=== PATIENT | female | born 1960 | race Caucasian/White ===

== ENCOUNTER → 2017-12-13 | Day surgery (SDC) | payer BC ==
[~2017-12-13] MED LIST: Lactated Ringers 1,000 ML IV SCH; Midazolam 1 MG/ML 2 ML SDV IV ONE; Midazolam 1 MG/ML 2 ML SDV ONE; fentaNYL 100 MCG/2 ML SDV IV ONE; fentaNYL 100 MCG/2 ML SDV ONE
--- NOTE | 2017-12-13 13:20 | OR ---
DATE: 12/13/2017 PREOPERATIVE DIAGNOSES: Screening colonoscopy and rectal bleeding. POSTOPERATIVE DIAGNOSES: Screening colonoscopy and rectal bleeding. PROCEDURE: Total colonoscopy. ANESTHESIA: Conscious sedation with IV Versed and fentanyl. SPECIMEN: None. OPERATIVE FINDINGS: Normal colonoscopy. She has an occasional cecal and right colon large mouth diverticula, but these are of no consequence. INDICATION FOR PROCEDURE: This 57-year-old female has not had a prior colonoscopy. She has evidence of blood within the stool. By physical examination, does have some external hemorrhoids. PROCEDURE IN DETAIL: After adequate preparation, a colonoscope was inserted into the rectum. This was easily passed all the way to the cecum. Confirmation of the cecum was made by visualization of the ileocecal valve and palpation in the right lower quadrant. I could also see a light shining through the right lower quadrant. The bowel prep was excellent. On withdrawal of the scope, she has 3 or 4 large mouth diverticula in the cecum and ascending colon. These are obviously not the bleeding sites. The rest of the colon examination is normal. She has no masses, evidence of colitis, other diverticula, or polyps. Rectal examination seems normal. I did not see any significant internal hemorrhoids. There was no visible cause for her bleeding, but if any of this continues, it is most likely internal hemorrhoid. Air was suctioned from the colon and the scope removed. [facility] /[id number]
== END ==
LOC: DL.ENDO 07:55
PROVIDERS: ATTEND Surgery
DX: K62.5 Hemorrhage of anus and rectum (principal); K57.30 Diverticulosis of large intestine without perforation or abscess without bleeding; K64.4 Residual hemorrhoidal skin tags; F17.200 Nicotine dependence, unspecified, uncomplicated
CPT/HCPCS: 45378; J2250; J3010; J7120

== ENCOUNTER 2020-09-28 08:11 | Emergency (ER) | payer BC, OTHER ==
--- NOTE | 2020-09-28 08:25 | EDM.PDOC ---
ED HPI GENERAL MEDICAL PROBLEM - General Chief Complaint: Head Injury Stated Complaint: FELL, LOSING MEMORY Time Seen by Provider: 09/28/20 08:21 Source of Information: Reports: Patient, Old Records, RN, RN Notes Reviewed History Limitations: Reports: No Limitations - History of Present Illness INITIAL COMMENTS - FREE TEXT/NARRATIVE: Pt presents to ER by POV with report that she slipped and fell in a parking lot at approximately 0800HRS this morning and struck her head on the pavement. Pt c/o feeling "foggy" with short term memory, and pain in the head, and at the base of the neck. Admits to nausea just after the fall. Denies LOC, vomiting, visual changes, radiating pain, numbness, tingling, or motor weakness. Denies any symptoms preceding the fall, such as chest pain, dizziness, etc. *At 0820HRS during triage it was determined that the pt. is on daily aspirin therapy, and was converted to a trauma chart by the refractory repairer. TRAUMA: ARRIVAL TIME: Trauma call initiated in ER at 0820HRS. C-COLLAR STATUS: applied by RN in ER GCS ON ARRIVAL: 15 LONG SPINAL BOARD STATUS: n/a Onset: Today, Sudden Onset Date: 09/28/20 Onset Time: 08:21 Duration: Constant Location: Reports: Head, Neck Quality: Reports: Ache Severity: Moderate Improves with: Reports: None Worsens with: Reports: Movement Context: Reports: Other (Ground level fall) Associated Symptoms: Reports: No Other Symptoms Shoulder Pain Score (Numeric/FACES): 4 - Related Data Allergies Allergy/AdvReac Type Severity Reaction Status Date / Time No Known Allergies Allergy Verified 07/05/18 03:46 Home Meds: Home Meds Aspirin [Adult Low Dose Aspirin EC] 81 mg PO DAILY 11/06/17 [History] Cholecalciferol (Vitamin D3) [Vitamin D] 5,000 unit PO DAILY 11/06/17 [History] Fish Oil/[place]-3 Fatty Acids [Fish Oil] 1 each PO DAILY 11/06/17 [History] Glucosamine [Glucosamine Sulfate] 500 mg PO DAILY 11/06/17 [History] Rosuvastatin [Crestor] 10 mg PO DAILY 11/06/17 [History] Ubidecarenone [COQ-10] 30 mg PO DAILY 11/06/17 [History] hydroCHLOROthiazide [Hydrochlorothiazide] 10 mg PO DAILY 11/06/17 [History] Olmesartan [Benicar] 20 mg PO BEDTIME 09/28/20 [History] Past Medical History HEENT History: Reports: Impaired Vision Other HEENT History: wears corrective lenses Cardiovascular History: Reports: Hypertension Respiratory History: Reports: None Gastrointestinal History: Reports: Other (See Below) Other Gastrointestinal History: inguinal hernia Genitourinary History: Reports: None BAT BOY/GIRL History: Reports: Musculoskeletal History: Reports: None Neurological History: Reports: None Psychiatric History: Reports: None Endocrine/Metabolic History: Reports: None Hematologic History: Reports: None Immunologic History: Reports: Immunosuppression Oncologic (Cancer) History: Reports: Basal Cell Carcinoma, Other (See Below) Other Oncologic History: basal cell Dermatologic History: Reports: Melanoma, Other (See Below) Other Dermatologic History: skin cancer removed x3 - Infectious Disease History Infectious Disease History: Reports: Mumps, Shingles - Past Surgical History HEENT Surgical History: Reports: None Cardiovascular Surgical History: Reports: None, Other (See Below) Other Cardiovascular Surgeries/Procedures: echocardiogram; BP meds adjusted GI Surgical History: Reports: Hernia, Inguinal Female Surgical History: Reports: Section Other Female Surgeries/Procedures: 2 c-sections Social & Family History - Family History Family Medical History: No Pertinent Family History - Caffeine Use Caffeine Use: Reports: Coffee, Soda Other Caffeine Use: 1 cup daily. 1 can soda - Living Situation & Occupation Living situation: Reports: , with Spouse ED ROS GENERAL - Review of Systems Review Of Systems: Comprehensive ROS is negative, except as noted in HPI. ED EXAM, HEAD INJURY - Physical Exam Exam: See Below Text/Narrative:: PRIMARY TRAUMA SURVEY (821): AIRWAY: Patent nasal and oral airways, conversant with normal speech, no evidence of airway obstruction. BREATHING: Spontaneous respirations, symmetric chest rise and fall, non-labored breathing. CIRCULATION: No central, peripheral, or perioral cyanosis. Heart regular rate and rhythm, non-muffled, no murmur. Intact distal pulses and capillary refill x all 4 distal extremities. DEFORMITY/DISABILITY: Head normal cephalic, tender "goose egg" at left posterior scalp; Neck no c-collar on arrival, placed by RN prior to exam, not removed for exam. Chest non-tender. Abdomen soft, non-tender, benign to exam. Pelvis stable. Upper extremities non-tender, atraumatic. Lower extremities non- tender, atraumatic. No active bleeding, no long bone deformities. No acute motor or sensory deficits. CN II-XII intact. GCS 15 on arrival. EXPOSURE: Skin warm and dry. SECONDARY TRAUMA SURVEY ([id number]): Exam Limited By: No Limitations General Appearance: Alert, WD/WN, No Apparent Distress Head: Normocephalic, Scalp Hematoma (Left posterior scalp), Scalp Tenderness. No: Active Bleeding, Harrison's Sign Nexus Criteria: Altered Level of Consciousness (Mild confusion to the events around the time of the fall). No: Posterior, Midline Cervical Tenderness, Evidence of Intoxication, Focal Neurological Deficit, Painful Distraction Injuries Eyes: Bilateral Eye: EOMI, Normal Inspection, PERRL Ears: Normal External Exam, Normal Canal, Hearing Grossly Normal, Normal TMs Nose: Normal Inspection, Normal Mucousa, No Blood Throat/Mouth: Normal Inspection, Normal Lips, Normal Teeth, Normal Gums, Normal Oropharynx, Normal Voice, No Airway Compromise Neck: Other (C-spine cleared by CT. C-collar removed at 0909HRS by me.) Respiratory: No Respiratory Distress, Lungs Clear, Normal Breath Sounds, No Accessory Muscle Use, Chest Non-Tender Cardiovascular: Normal Peripheral Pulses, Regular Rate, Rhythm, No Edema, No Gallop, No JVD, No Murmur, No Rub, Extra Beats GI/Abdominal Exam: Normal Bowel Sounds, Soft, Non-Tender, No Organomegaly, No Distention, No Abnormal Bruit, No Mass Back Exam: Full Range of Motion, Normal Inspection, NT Extremities: Normal Inspection, Normal Range of Motion, Non-Tender, No Pedal Edema, Normal Capillary Refill Neurologic: metal numerical control programmer II-XII nml As Tested, No Motor/Sensory Deficits, Alert, Normal Mood/Affect, Oriented x 3, Other (GCS at 1HR: 15. GCS at discharge: 15) Skin: Normal Color, Warm/Dry - [place] Coma Score Best Eye Response ([place]): (4) Open Spontaneously Best Verbal Response (Carlos A): (5) Oriented Best Motor Response ([place]): (6) Obeys Commands [place] Total: 15 #1 Interpretation EKG Date: 09/28/20 Time: 08:52 Rhythm: Other (SR with ventricular trigeminy) Rate (Beats/Min): 89 [place]: Normal P-Wave: Present QRS: Other (Anterior Q waves) ST-T: Normal QT: Normal Comparison: NA - No Prior EKG Course - Vital Signs Last Recorded V/S: Last Vital Signs Temp 96.4 F L 09/28/20 08:17 Pulse 69 09/28/20 08:17 Resp 16 09/28/20 08:17 BP 142/78 H 09/28/20 08:17 Pulse Ox 99 09/28/20 08:17 - Orders/Labs/Meds Orders: Active Orders 24 hr Category Date Time Status EKG 12 Lead [EKG Documentation Completion] [RC] STAT Care 09/28/20 08:36 Active COMPREHENSIVE METABOLIC PN,CMP [CHEM] Stat Lab 09/28/20 08:58 Received ETHANOL BLOOD MEDICAL [CHEM] Stat Lab 09/28/20 08:58 Received INR,PT,PROTHROMBIN TIME [COAG] Stat Lab 09/28/20 08:58 Received PTT,PARTIAL THROMBOPLSTIN TIME [COAG] Stat Lab 09/28/20 08:58 Received TROPONIN I [CHEM] Stat Lab 09/28/20 08:58 Received UA RFX JEM AND CULT IF INDIC [URIN] Stat Lab 09/28/20 09:04 Received Labs: Laboratory Tests 09/28/20 09/28/20 Range/Units 08:58 09:04 WBC 6.0 (5.0-10.0) 10^3/uL RBC 4.86 (4.2-5.4) 10^6/uL Hgb 14.8 (12.0-16.0) g/dL Hct 41.6 (37.0-47.0) % MCV 85.6 (80-100) fL MCH 30.5 (27.0-34.0) pg MCHC 35.6 H (33.0-35.0) g/dL Plt Count 190 (150-450) 10^3/uL Neut % (Auto) 73.4 (42.2-75.2) % Lymph % (Auto) 17.7 L (20.5-50.1) % [place] % (Auto) 7.5 (2-8) % Eos % (Auto) 0.7 L (1.0-3.0) % Baso % (Auto) 0.7 (0.0-1.0) % Urine Opiates Screen Negative (NEGATIVE) Ur Oxycodone Screen Negative (NEGATIVE) Urine Methadone Screen Negative (NEGATIVE) Ur Barbiturates Screen Negative (NEGATIVE) U Tricyclic Antidepress Negative (NEGATIVE) Ur Phencyclidine Scrn Negative (NEGATIVE) Ur Amphetamine Screen Negative (NEGATIVE) U Methamphetamines Scrn Negative (NEGATIVE) Urine MDMA Screen Negative (NEGATIVE) U Benzodiazepines Scrn Negative (NEGATIVE) Urine Cocaine Screen Negative (NEGATIVE) U Marijuana (THC) Screen Negative (NEGATIVE) - Radiology Interpretation Free Text/Narrative:: [facility] Final Radiology Report Call: [phone] assistance Online chat: [email or web address] Name: ERNIE DE LA TORRE Age: 60Years F Date: 09/28/2020 SSN: -- : 1960 Study: CT HEAD WO CONT Requesting Physician: KEVIN SALDAÑA Images: 147 Addl Studies: Provided Clinical History: TRAUMA: fall, head neck injury Contrast: Without Contrast Medium: Contrast Amount: Contrast Method: Page 1 of 2 PROCEDURE INFORMATION: Exam: CT Head Without Contrast Exam date and time: 09/28/2020 8:43 AM Age: 60 years old Clinical indication: Injury or trauma; Fall; Blunt trauma (contusions or hematomas) and concussion/head injury; Additional info: Trauma: Fall, head neck injury TECHNIQUE: Imaging protocol: Computed tomography of the head without contrast. Radiation optimization: All CT scans at this facility use at least one of these dose optimization techniques: automated exposure control; mA and/or kV adjustment per patient size (includes targeted exams where dose is matched to clinical indication); or iterative reconstruction. COMPARISON: No relevant prior exams. FINDINGS: Brain: Normal. No hemorrhage. Unremarkable white matter. No mass effect. Virchow-Ori space in the left basal ganglia. Cerebral ventricles: No ventriculomegaly. Bones/joints: Unremarkable. No acute fracture. Paranasal sinuses: Visualized sinuses are unremarkable. No fluid levels. Mastoid air cells: Visualized mastoid air cells are well aerated. Soft tissues: Mild swelling of the occipital scalp. IMPRESSION: No acute intracranial changes. Thank you for allowing us to participate in the care of your patient. ERNIE DE LA TORRE | Final Radiology Report CONFIDENTIALITY STATEMENT This report is intended only for use by the referring physician, and only in accordance with law. If you received this in error, call [phone]. Page 2 of 2 Dictated and Authenticated by: Scot Washington MD 09/28/2020 8:53 AM Central Time ([place] & [place]) [facility] Final Radiology Report Call: [phone] assistance Online chat: [email or web address] Name: ERNIE DE LA TORRE Age: 60Years F Date: 09/28/2020 SSN: -- : 1960 Study: CT CERVICAL SPINE WO CONT Requesting Physician: KEVIN SALDAÑA Images: 365 Addl Studies: Provided Clinical History: TRAUMA: fall, head neck injury Contrast: Without Contrast Medium: Contrast Amount: Contrast Method: Page 1 of 2 PROCEDURE INFORMATION: Exam: CT Cervical Spine Without Contrast Exam date and time: 09/28/2020 8:43 AM Age: 60 years old Clinical indication: Injury or trauma; Fall; Blunt trauma and concussion/head injury; Additional info: Trauma: Fall, head neck injury TECHNIQUE: Imaging protocol: Computed tomography images of the cervical spine without contrast. Radiation optimization: All CT scans at this facility use at least one of these dose optimization techniques: automated exposure control; mA and/or kV adjustment per patient size (includes targeted exams where dose is matched to clinical indication); or iterative reconstruction. COMPARISON: No relevant prior exams. FINDINGS: Bones/joints: No fractures. Normal alignment. Discs/Spinal canal/Neural foramina: Mild narrowing of the C2-C3 disc space. Moderate narrowing of the C5-C6 disc space. Mild narrowing of the C6-C7 disc space. Lungs: Lung apices are normal. Soft tissues: Unremarkable. IMPRESSION: 1. No fractures or dislocations. 2. Degenerative disc disease. Thank you for allowing us to participate in the care of your patient. ERNIE DE LA TORRE | Final Radiology Report CONFIDENTIALITY STATEMENT This report is intended only for use by the referring physician, and only in accordance with law. If you received this in error, call [phone]. Page 2 of 2 Dictated and Authenticated by: Scot Washington MD 09/28/2020 8:51 AM Central Time ([place] & [place]) - Re-Assessments/Exams Free Text/Narrative Re-Assessment/Exam: 09/28/20 09:30 On reassessment the pt is feeling somewhat improved, no further nausea, but reports a frontal headache and some stiffness in the neck muscles. and daughter (an RN) are present. Pt feels well enough to go home. Departure - Departure Time of Disposition: 09:35 Disposition: Home, Self-Care 01 Condition: Good Clinical Impression: Concussion injury of brain, Ventricular trigeminy Neck strain Qualifiers: Encounter type: initial encounter Qualified Code(s): S16.1XXA - Strain of muscle, fascia and tendon at neck level, initial encounter - Discharge Information *PRESCRIPTION DRUG MONITORING PROGRAM REVIEWED*: Not Applicable *COPY OF PRESCRIPTION DRUG MONITORING REPORT IN PATIENT ELAINE: Not Applicable Instructions: Concussion, Adult, [id number], Returning to Sports and Activities After a Concussion, Adult, Cervical Strain and Sprain Rehab- Sports[facility], Premature Ventricular Contraction Forms: ED Department Discharge Additional Instructions: Rest for a few days. Avoid physical exertion, exercise, sports, rough activity, prolonged reading, and prolonged viewing of TV, computer, or phone screens for 2 to 3 weeks. Avoid medications that may cause drowsiness. Avoid alcohol and excessive caffeine. Follow up in clinic in the next week to 10 days for recheck of concussion and of PVCs/trigeminy (extra heart beats). Sepsis Event Note (ED) - Focused Exam Vital Signs: Vital Signs Temp Pulse Resp BP Pulse Ox 09/28/20 08:17 96.4 F L 69 16 142/78 H 99 - My Orders Last 24 Hours: My Active Orders 09/28/20 08:36 EKG 12 Lead [EKG Documentation Completion] [RC] STAT 09/28/20 08:58 COMPREHENSIVE METABOLIC PN,CMP [CHEM] Stat ETHANOL BLOOD MEDICAL [CHEM] Stat INR,PT,PROTHROMBIN TIME [COAG] Stat PTT,PARTIAL THROMBOPLSTIN TIME [COAG] Stat TROPONIN I [CHEM] Stat 09/28/20 09:04 UA RFX JEM AND CULT IF INDIC [URIN] Stat - Assessment/Plan Last 24 Hours: My Active Orders 09/28/20 08:36 EKG 12 Lead [EKG Documentation Completion] [RC] STAT 09/28/20 08:58 COMPREHENSIVE METABOLIC PN,CMP [CHEM] Stat ETHANOL BLOOD MEDICAL [CHEM] Stat INR,PT,PROTHROMBIN TIME [COAG] Stat PTT,PARTIAL THROMBOPLSTIN TIME [COAG] Stat TROPONIN I [CHEM] Stat 09/28/20 09:04 UA RFX JEM AND CULT IF INDIC [URIN] Stat
--- NOTE | 2020-09-28 08:52 | CT ---
PROCEDURE INFORMATION: Exam: CT Cervical Spine Without Contrast Exam date and time: 09/28/2020 8:43 AM Age: 60 years old Clinical indication: Injury or trauma; Fall; Blunt trauma and concussion/head injury; Additional info: Trauma: Fall, head neck injury TECHNIQUE: Imaging protocol: Computed tomography images of the cervical spine without contrast. Radiation optimization: All CT scans at this facility use at least one of these dose optimization techniques: automated exposure control; mA and/or kV adjustment per patient size (includes targeted exams where dose is matched to clinical indication); or iterative reconstruction. COMPARISON: No relevant prior exams. FINDINGS: Bones/joints: No fractures. Normal alignment. Discs/Spinal canal/Neural foramina: Mild narrowing of the C2-C3 disc space. Moderate narrowing of the C5-C6 disc space. Mild narrowing of the C6-C7 disc space. Lungs: Lung apices are normal. Soft tissues: Unremarkable. IMPRESSION: 1. No fractures or dislocations. 2. Degenerative disc disease.
--- NOTE | 2020-09-28 08:53 | CT ---
PROCEDURE INFORMATION: Exam: CT Head Without Contrast Exam date and time: 09/28/2020 8:43 AM Age: 60 years old Clinical indication: Injury or trauma; Fall; Blunt trauma (contusions or hematomas) and concussion/head injury; Additional info: Trauma: Fall, head neck injury TECHNIQUE: Imaging protocol: Computed tomography of the head without contrast. Radiation optimization: All CT scans at this facility use at least one of these dose optimization techniques: automated exposure control; mA and/or kV adjustment per patient size (includes targeted exams where dose is matched to clinical indication); or iterative reconstruction. COMPARISON: No relevant prior exams. FINDINGS: Brain: Normal. No hemorrhage. Unremarkable white matter. No mass effect. Virchow-Ori space in the left basal ganglia. Cerebral ventricles: No ventriculomegaly. Bones/joints: Unremarkable. No acute fracture. Paranasal sinuses: Visualized sinuses are unremarkable. No fluid levels. Mastoid air cells: Visualized mastoid air cells are well aerated. Soft tissues: Mild swelling of the occipital scalp. IMPRESSION: No acute intracranial changes.
[2020-09-28 09:23] LABS: PTT,PARTIAL THROMBOPLSTIN TIME 23.6 SEC (22.0-34.0)
[2020-09-28 09:29] LABS: ANION GAP 12.8 mEq/L (7-13); CHLORIDE,CL 100 mmol/L (98-107); SODIUM,NA 139 mmol/L (136-145)
== END 2020-09-28 09:57 | disposition home or self-care (01) ==
LOC: DL.ED 08:11
DX: S06.0X0A Concussion without loss of consciousness, initial encounter (principal); S16.1XXA Strain of muscle, fascia and tendon at neck level, initial encounter; I10 Essential (primary) hypertension; R00.8 Other abnormalities of heart beat; Z79.82 Long term (current) use of aspirin; Z79.899 Other long term (current) drug therapy; W01.0XXA Fall on same level from slipping, tripping and stumbling without subsequent striking against object, initial encounter; Y92.481 Parking lot as the place of occurrence of the external cause
CPT/HCPCS: 36415; 70450; 72125; 80053; 80305-QW; 80307; 81003; 84484; 85025; 85610; 85730; 93005; 93010; 99284; 99284-25